=== PATIENT | male | born 1995 | race Caucasian/White ===

== ENCOUNTER 2016-07-26 01:07 | Emergency (ER) | payer OTHER ==
[~2016-07-26] VITALS: Ht 190.5 cm; Wt 83.9 kg
[2016-07-26 01:25] VITALS: BP 121/69
[2016-07-26] MEDS ORDERED: FLUORESCEIN SODIUM OPHTH 1 EA STRIP ONE (03:35)
[2016-07-26] MEDS ORDERED: FLUORESCEIN SODIUM OPHTH 1 EA STRIP OP ONE (04:00)
== END 2016-07-26 03:47 | disposition home or self-care (01) ==
LOC: ER 01:14
DX: S05.01XA Injury of conjunctiva and corneal abrasion without foreign body, right eye, initial encounter (principal); X58.XXXA Exposure to other specified factors, initial encounter; Y93.9 Activity, unspecified; Y92.9 Unspecified place or not applicable; Y99.9 Unspecified external cause status
CPT/HCPCS: 99283; A4606; Z7610

== ENCOUNTER 2021-02-05 20:25 | Emergency (ER) | payer OTHER ==
[~2021-02-05] VITALS: Ht 188 cm; Wt 102.1 kg
--- NOTE | 2021-02-05 20:25 | NUR ---
CP AND SOB X4MO, PMD TOLD TO GO ER, LEFT SIDED NONPROVOKED,NONRADIATING, pt [id number], denies any sob, vss, nad noted,pending er provider eval
[2021-02-05] MEDS ORDERED: IBUPROFEN 600 MG TABLET PO ONE (21:30)
[2021-02-05 21:31] LABS: BASOPHILS # (AUTO) 0.1 K/uL (0.0-0.2); BASOPHILS % (AUTO) 0.9 % (0.0-2.0); EOSINOPHILS % (AUTO) 2.4 % (0.0-6.0); HEMATOCRIT 48 % (39-51); HEMOGLOBIN 16.5 g/dL (13.5-17.5); LYMPHOCYTES # (AUTO) 3.4 K/uL (0.8-4.8); LYMPHOCYTES % (AUTO) 43.6 % (20.0-44.0); MEAN CORPUSCULAR HGB CONC 35 g/dl (31.0-36.0); MEAN CORPUSCULAR VOLUME 93 fL (80-96); MONOCYTES # (AUTO) 0.6 K/uL (0.1-1.30); MONOCYTES % (AUTO) 7.4 % (2.0-12.0); NEUTROPHILS # (AUTO) 3.6 K/uL (1.8-8.9); NEUTROPHILS % (AUTO) 45.7 % (43.0-81.0); PLATELET COUNT (AUTO) 288 K/uL (150-450); RED BLOOD CELL COUNT(AUTO) 5.13 MIL/uL (4.5-6.0); WHITE BLOOD COUNT (AUTO) 7.8 K/uL (4.3-11.0)
[2021-02-05] MEDS ORDERED: IBUPROFEN 600 MG TABLET ONE (21:31)
--- NOTE | 2021-02-05 21:37 | NUR ---
xray at bedside
[2021-02-05 22:01] LABS: ALANINE AMINOTRANSFERASE 34 U/L (12-78); ALBUMIN 4.2 g/dL (3.4-5.0); ALKALINE PHOSPHATASE 83 U/L (46-116); ASPARTATE AMINOTRANSFERASE 15 U/L (15-37); BILIRUBIN,DIRECT 0.1 mg/dL (0.0-0.2); BILIRUBIN,TOTAL 0.4 mg/dL (0.2-1.0); CALCIUM, SERUM 8.6 mg/dL (8.5-10.1); CARBON DIOXIDE 26 mmol/L (21-32); CHLORIDE 104 mmol/L (98-107); CREATININE 1.2 mg/dL (0.6-1.3); GLUCOSE 94 mg/dL (74-106); POTASSIUM 3.8 mmol/L (3.5-5.1); SODIUM SERUM 140 mmol/L (136-145); TOTAL PROTEIN, SERUM 7.7 g/dL (6.4-8.2); UREA NITROGEN, BLOOD 21 mg/dL (7-18)
[2021-02-05] MEDS ORDERED: IBUP-1955 PO (22:08)
--- NOTE | 2021-02-05 22:20 | NUR ---
Patient discharged to home in stable condition. Written and verbal after care instructions given. Patient verbalizes understanding of instruction. IV removed. Catheter intact and site benign. Pressure and 4x4 applied to site. No bleeding noted.
[2021-02-06 05:36] VITALS: BP 124/70
== END 2021-02-05 22:20 | disposition home or self-care (01) ==
LOC: ER 20:30
DX: R07.89 Other chest pain (principal); Z86.718 Personal history of other venous thrombosis and embolism; Z98.890 Other specified postprocedural states; Z79.899 Other long term (current) drug therapy
CPT/HCPCS: 36415; 71045-TC; 80048-TC; 80076-TC; 84484-TC; 85025-TC; 85378-TC